=== PATIENT | female | born 1960 | race Two or more races ===

== ENCOUNTER → 2019-02-01 | Outpatient (CLI) | payer MEDICARE, MEDICAID | END | disposition home or self-care (01) | LOC: MSC 09:15 | PROVIDERS: ATTEND Anesthesiology | DX: M46.96 Unspecified inflammatory spondylopathy, lumbar region (principal); M54.16 Radiculopathy, lumbar region; M62.830 Muscle spasm of back; M40.299 Other kyphosis, site unspecified; G89.29 Other chronic pain; M54.2 Cervicalgia; M25.561 Pain in right knee; M25.562 Pain in left knee; Z99.3 Dependence on wheelchair; Z79.891 Long term (current) use of opiate analgesic ==